=== PATIENT | female | born 1960 | race Caucasian/White ===

== ENCOUNTER 2020-07-11 11:18 | Emergency (ER) | payer OTHER, BC ==
[2020-07-11] MEDS ORDERED: Diphtheria,Pertussis(Acell),Tetanus Vaccine 0.5 ML SDV IM ONE (12:20)
--- NOTE | 2020-07-11 12:32 | EDM.PDOC ---
ED HPI GENERAL MEDICAL PROBLEM - General Stated Complaint: LACERATION Time Seen by Provider: 07/11/20 12:00 Source of Information: Reports: Patient - History of Present Illness INITIAL COMMENTS - FREE TEXT/NARRATIVE: Patient is a 60 y/o female who presents with laceration to her left wrist. She was using a steam box hand at work and accidentally cut herself. Bleeding controlled prior to arrival to the ED. Last tetanus immunization was in 2013. - Related Data Allergies Allergy/AdvReac Type Severity Reaction Status Date / Time codeine Allergy Facial Verified 07/14/18 12:26 Swelling Home Meds: Home Meds Calcium Citrate 200 mg PO DAILY 07/23/13 [History] Ibuprofen/Pseudoephedrine HCl [Advil Cold & Sinus Caplet] 200 mg PO ASDIRECTED 09/26/14 [History] ED ROS GENERAL - Review of Systems Review Of Systems: See Below Constitutional: Reports: No Symptoms HEENT: Reports: No Symptoms Musculoskeletal: Reports: No Symptoms Skin: Reports: Wound ED EXAM, SKIN/RASH Exam: See Below Exam Limited By: No Limitations General Appearance: Alert, No Apparent Distress Head: Atraumatic, Normocephalic Respiratory/Chest: No Respiratory Distress, No Accessory Muscle Use Extremities: Normal Inspection, Normal Range of Motion, Normal Capillary Refill Neurological: Alert, Oriented Skin: Warm, Dry, Wound/Incision, Other (2.0 cm gaping, subcutaneous laceration to left wrist) ED SKIN PROCEDURES - Laceration/Wound Repair Left Ventral Wrist Appearance: Subcutaneous Distal NVT: Neuro & Vascular Intact, No Tendon Injury Anesthetic Type: Local Local Anesthesia - Lidocaine (Xylocaine): 1% Plain Local Anesthetic Volume: 3cc Skin Prep: Chlorhexidine (Hibiciens), Saline Exploration/Debridement/Repair: Wound Explored, No Foreign Material Found Suture Size: 4-0 # of Sutures: 3 Repaired with: Other (ethilon) Drain Placement: No Sterile Dressing Applied: Nurse Tetanus Status Addressed: Yes Complications: No Course - Vital Signs Last Recorded V/S: Last Vital Signs Temp 36.4 C 07/11/20 12:05 Pulse 71 07/11/20 12:05 Resp 18 07/11/20 12:05 BP 149/88 H 07/11/20 12:05 Pulse Ox 99 07/11/20 12:05 - Orders/Labs/Meds Orders: Active Orders 24 hr Category Date Time Status Vaccines to be Administered [RC] PER UNIT ROUTINE Care 07/11/20 12:20 Ordered Meds: Medications Discontinued Medications Generic Name Dose Route Start Last Admin Trade Name Vero PRN Reason Stop Dose Admin Diphtheria/Tetanus/Acell Pertussis 0.5 ml 07/11/20 12:20 Boostrix IM 07/11/20 12:21 .ONCE ONE Departure - Departure Time of Disposition: 12:00 Disposition: Home, Self-Care 01 Clinical Impression: Laceration - Discharge Information *PRESCRIPTION DRUG MONITORING PROGRAM REVIEWED*: Not Applicable *COPY OF PRESCRIPTION DRUG MONITORING REPORT IN PATIENT GOLD: Not Applicable Sepsis Event Note (ED) - Evaluation Sepsis Screening Result: No Definite Risk - Focused Exam Vital Signs: Vital Signs Temp Pulse Resp BP Pulse Ox 07/11/20 12:05 36.4 C 71 18 149/88 H 99 - My Orders Last 24 Hours: My Active Orders 07/11/20 12:20 Vaccines to be Administered [RC] PER UNIT ROUTINE - Assessment/Plan Last 24 Hours: My Active Orders 07/11/20 12:20 Vaccines to be Administered [RC] PER UNIT ROUTINE
== END 2020-07-11 12:45 | disposition home or self-care (01) ==
LOC: LB.ED 11:18
DX: S61.512A Laceration without foreign body of left wrist, initial encounter (principal); Z23 Encounter for immunization; Z88.5 Allergy status to narcotic agent; Z79.899 Other long term (current) drug therapy; W27.8XXA Contact with other nonpowered hand tool, initial encounter; Y99.0 Civilian activity done for income or pay
CPT/HCPCS: 12001; 12002; 90471; 90715; 99282-25; 99284

== ENCOUNTER 2021-01-22 18:47 | Emergency (ER) | payer BC ==
[~2021-01-22 18:47] MED LIST: Sodium Chloride 0.9% 1,000 ML IV ONE
--- NOTE | 2021-01-22 19:05 | EDM.PDOC ---
ED HPI GENERAL MEDICAL PROBLEM - General Chief Complaint: Abdominal Pain Stated Complaint: abd pain Time Seen by Provider: 01/22/21 19:10 Source of Information: Reports: Patient History Limitations: Reports: No Limitations - History of Present Illness INITIAL COMMENTS - FREE TEXT/NARRATIVE: Ms. Suarez is a 60 YOF here for diffuse abdominal pain and nausea that began this am. She states it started in the chest and has moved down into her lower abdomen. She has not taken anything for her symptoms. No history of choroidal melanoma. Abd is soft, she is not guarding, no rebound tenderness. No vomiting. Normal HRR, lungs are CTA, no fever or rash noted. Onset: Today Onset Date: 01/22/21 Onset Time: 10:00 Duration: Hour(s):, Constant Location: Reports: Abdomen Quality: Reports: Ache Improves with: Reports: None Worsens with: Reports: None Associated Symptoms: Reports: No Other Symptoms Abdominal Pain Score (Numeric/FACES): 8 - Related Data Allergies Allergy/AdvReac Type Severity Reaction Status Date / Time codeine Allergy Facial Verified 01/22/21 19:14 Swelling Home Meds: Home Meds Calcium Citrate 200 mg PO DAILY 07/23/13 [History] Ibuprofen/Pseudoephedrine HCl [Advil Cold & Sinus Caplet] 200 mg PO ASDIRECTED 09/26/14 [History] Cyclobenzaprine [Flexeril] 10 mg PO BEDTIME 01/22/21 [History] Escitalopram Oxalate [Lexapro] 20 mg PO DAILY 01/22/21 [History] ED ROS GENERAL - Review of Systems Review Of Systems: See Below GI/Abdominal: Reports: Abdominal Pain, Nausea ED EXAM, GI/ABD - Physical Exam Exam: See Below Exam Limited By: No Limitations General Appearance: Alert, Anxious, Mild Distress Ears: Normal External Exam, Normal Canal Nose: Normal Inspection, Normal Mucosa Throat/Mouth: Normal Inspection, Normal Lips, Normal Teeth, Normal Oropharynx Head: Atraumatic, Normocephalic Neck: Normal Inspection, Supple, Non-Tender Respiratory/Chest: No Respiratory Distress, Lungs Clear, Normal Breath Sounds Cardiovascular: Normal Peripheral Pulses, Regular Rate, Rhythm, No Edema GI/Abdominal Exam: Normal Bowel Sounds, Soft, No Distention (Female) Exam: Deferred Rectal (Female) Exam: Deferred Back Exam: Normal Inspection Extremities: Normal Inspection, Normal Range of Motion, Non-Tender Neurological: Alert, Oriented, CN II-XII Intact, Normal Cognition Psychiatric: Normal Affect, Anxious Skin Exam: Warm, Dry, Intact, Normal Color Lymphatic: No Adenopathy #1 Interpretation EKG Date: 01/22/21 Time: 18:58 Rhythm: NSR Rate (Beats/Min): 88 [place]: Normal P-Wave: Present QRS: Normal ST-T: Normal QT: Normal Comparison: NA - No Prior EKG EKG Interpretation Comments: Normal sinus rhythm Course - Vital Signs Last Recorded V/S: Last Vital Signs Temp 37.1 C 01/22/21 18:47 Pulse 91 01/22/21 19:05 Resp 18 01/22/21 19:05 BP 162/103 H 01/22/21 19:05 Pulse Ox 98 01/22/21 19:05 - Orders/Labs/Meds Orders: Active Orders 24 hr Category Date Time Status EKG Documentation Completion [RC] ASDIRECTED Care 01/22/21 19:00 Active Abdomen Pelvis w Cont [CT] Stat Exams 01/22/21 18:20 Taken CORONAVIRUS COVID-19 KASSY [MOLEC] Stat Lab 01/22/21 20:24 Received CULTURE URINE [RM] Stat Lab 01/22/21 20:21 Received Iopamidol [Isovue-300 (61%)] Med 01/22/21 19:15 Active 100 ml IV . DIRECTED Levofloxacin/Dextrose 5%-Water [Levaquin in D5W 750 MG/ Med 01/22/21 19:46 Active 150 ML] 750 mg Levofloxacin/Dextrose 5%-Water [Levaquin in D5W 750 MG/ 150 ML] 150 ml IV ONETIME Phenazopyridine [Pyridium] Med 01/22/21 20:18 Active 200 mg PO BID PRN Sodium Chloride 0.9% [Normal Saline] 1,000 ml Med 01/22/21 18:23 Active IV .BOLUS Medication Orders Sodium Chloride (Normal Saline) 1,000 mls @ 999 drops/hr IV .BOLUS ONE Stop: 01/23/21 09:23 Last Admin: 01/22/21 19:19 Dose: 999 drops/hr Documented by: KEYLA Levofloxacin/Dextrose 750 mg/ (Levofloxacin/Dextrose) 300 mls @ 100 mls/hr IV ONETIME ONE Stop: 01/22/21 22:45 Last Admin: 01/22/21 19:50 Dose: 100 mls/hr Documented by: KEYLA Iopamidol (Iopamidol 612 Mg/Ml 100 Ml Bottle) 100 ml IV . DIRECTED [place] Last Admin: 01/22/21 19:29 Dose: 100 ml Documented by: IVETTE Phenazopyridine HCl (Phenazopyridine 100 Mg Tab) 200 mg PO BID PRN PRN Reason: Abdominal Pain Last Admin: 01/22/21 20:42 Dose: 200 mg Documented by: KEYLA Labs: Laboratory Tests 01/22/21 01/22/21 01/22/21 Range/Units 19:00 19:00 19:00 WBC 12.9 H D (4.0-11.0) K/uL RBC 4.33 (3.80-5.80) M/uL Hgb 13.5 (11.5-16.5) g/dL Hct 39.4 (37.0-47.0) % MCV 91 (76-96) fL MCH 31.2 (27.0-32.0) pg MCHC 34.3 (31.0-35.0) g/dL RDW 11.7 (11.0-16.0) % Plt Count 200 (150-500) K/uL MPV 8.8 (6.0-10.0) fL Neut % (Auto) 80.6 H (45.0-70.0) % Lymph % (Auto) 10.1 L (20.0-40.0) % [place] % (Auto) 8.1 (3.0-10.0) % Eos % (Auto) 1.0 (1.0-5.0) % Baso % (Auto) 0.2 (0.0-0.5) % Neut # (Auto) 10.42 H (2.00-7.50) K/uL Lymph # (Auto) 1.30 L (1.50-4.00) K/uL [place] # (Auto) 1.05 H (0.20-0.80) K/uL Eos # (Auto) 0.13 (0.04-0.40) K/uL Baso # (Auto) 0.02 (0.02-0.10) K/uL Sodium 138 (136-145) mmol/L Potassium 4.8 (3.5-5.1) mmol/L Chloride 103 (98-107) mmol/L Carbon Dioxide 24.5 (21.0-32.0) mmol/L Anion Gap 15.3 H (5.0-15.0) mmol/L BUN 13 D (8-26) mg/dL Creatinine 0.78 (0.55-1.02) mg/dL Est Cr Clr Drug Dosing TNP Estimated GFR (MDRD) > 60 (>60) MLS/MIN BUN/Creatinine Ratio 16.7 (6-25) Glucose 135 H D (74-100) mg/dL Calcium 8.7 (8.5-10.1) mg/dL Total Bilirubin 0.7 (0.0-1.0) mg/dL AST 14 L (15-37) U/L ALT 23 (12-78) U/L Alkaline Phosphatase 82 (46-116) U/L Troponin I < 0.017 (0.000-0.060) ng/mL Total Protein 7.5 (6.4-8.2) g/dL Albumin 4.1 (3.4-5.0) g/dL Globulin 3.4 (2.2-4.2) g/dL Albumin/Globulin Ratio 1.2 (0.8-2.0) Urine Color Urine Appearance (CLEAR) Urine pH (5.0-8.0) Ur Specific [place] (1.003-1.030) Urine Protein (NEGATIVE) mg/dL Urine Glucose (UA) (NEGATIVE) mg/dL Urine Ketones (NEGATIVE) mg/dL Urine Occult Blood (NEGATIVE) Urine Nitrite (NEGATIVE) Urine Bilirubin (NEGATIVE) Urine Urobilinogen (0.2-1.0) E.U./dL Ur Leukocyte Esterase (NEGATIVE) Urine RBC /HPF Urine WBC /HPF Urine WBC Clumps /HPF Ur Squamous Epith Cells /HPF Urine Bacteria /HPF 01/22/21 Range/Units 19:07 WBC (4.0-11.0) K/uL RBC (3.80-5.80) M/uL Hgb (11.5-16.5) g/dL Hct (37.0-47.0) % MCV (76-96) fL MCH (27.0-32.0) pg MCHC (31.0-35.0) g/dL RDW (11.0-16.0) % Plt Count (150-500) K/uL MPV (6.0-10.0) fL Neut % (Auto) (45.0-70.0) % Lymph % (Auto) (20.0-40.0) % [place] % (Auto) (3.0-10.0) % Eos % (Auto) (1.0-5.0) % Baso % (Auto) (0.0-0.5) % Neut # (Auto) (2.00-7.50) K/uL Lymph # (Auto) (1.50-4.00) K/uL [place] # (Auto) (0.20-0.80) K/uL Eos # (Auto) (0.04-0.40) K/uL Baso # (Auto) (0.02-0.10) K/uL Sodium (136-145) mmol/L Potassium (3.5-5.1) mmol/L Chloride (98-107) mmol/L Carbon Dioxide (21.0-32.0) mmol/L Anion Gap (5.0-15.0) mmol/L BUN (8-26) mg/dL Creatinine (0.55-1.02) mg/dL Est Cr Clr Drug Dosing Estimated GFR (MDRD) (>60) MLS/MIN BUN/Creatinine Ratio (6-25) Glucose (74-100) mg/dL Calcium (8.5-10.1) mg/dL Total Bilirubin (0.0-1.0) mg/dL AST (15-37) U/L ALT (12-78) U/L Alkaline Phosphatase (46-116) U/L Troponin I (0.000-0.060) ng/mL Total Protein (6.4-8.2) g/dL Albumin (3.4-5.0) g/dL Globulin (2.2-4.2) g/dL Albumin/Globulin Ratio (0.8-2.0) Urine Color Yellow Urine Appearance Cloudy (CLEAR) Urine pH 6.0 (5.0-8.0) Ur Specific [place] 1.025 (1.003-1.030) Urine Protein Negative (NEGATIVE) mg/dL Urine Glucose (UA) Negative (NEGATIVE) mg/dL Urine Ketones 40 H (NEGATIVE) mg/dL Urine Occult Blood Trace-lysed H (NEGATIVE) Urine Nitrite Positive H (NEGATIVE) Urine Bilirubin Negative (NEGATIVE) Urine Urobilinogen 0.2 (0.2-1.0) E.U./dL Ur Leukocyte Esterase Small H (NEGATIVE) Urine RBC 0-5 H /HPF Urine WBC 50-75 H /HPF Urine WBC Clumps Few /HPF Ur Squamous Epith Cells Few /HPF Urine Bacteria Many H /HPF Meds: Medications Generic Name Dose Route Start Last Admin Trade Name Vero PRN Reason Stop Dose Admin Sodium Chloride 1,000 mls @ 999 drops/hr 01/22/21 18:23 01/22/21 19:19 Normal Saline IV 01/23/21 09:23 999 drops/hr .BOLUS ONE Administration Levofloxacin/Dextrose 750 mg/ 300 mls @ 100 mls/hr 01/22/21 19:46 01/22/21 19:50 Levofloxacin/Dextrose IV 01/22/21 22:45 100 mls/hr ONETIME ONE Administration Iopamidol 100 ml 01/22/21 19:15 01/22/21 19:29 Iopamidol 612 Mg/Ml 100 Ml Bottle IV 100 ml . DIRECTED [place] Administration Phenazopyridine HCl 200 mg 01/22/21 20:18 01/22/21 20:42 Phenazopyridine 100 Mg Tab PO 200 mg BID PRN Administration Abdominal Pain Discontinued Medications Generic Name Dose Route Start Last Admin Trade Name Vero PRN Reason Stop Dose Admin Fentanyl 12.5 mcg 01/22/21 19:23 01/22/21 19:29 Fentanyl 100 Mcg/2 Ml Sdv IVPUSH 01/22/21 19:24 12.5 mcg ONETIME ONE Administration Hydromorphone HCl 1 mg 01/22/21 20:47 Hydromorphone 2 Mg/Ml Sdv IV 01/22/21 20:48 ONETIME ONE Levofloxacin/Dextrose Confirm 01/22/21 19:37 01/22/21 20:08 Levaquin In D5w 750 Mg/150 Ml Administered 01/22/21 19:38 Not Given Dose 150 mls @ as directed IV .STK-MED ONE Sodium Chloride 50 ml 01/22/21 19:10 01/22/21 19:28 Sodium Chloride 0.9% 50 Ml Sdv FLUSH 01/22/21 19:11 50 ml ONETIME ONE Administration Departure - Departure Time of Disposition: 21:00 Disposition: DC/Tfer to Acute Hospital 02 Condition: Good Clinical Impression: UTI (urinary tract infection) Qualifiers: Urinary tract infection type: acute cystitis Hematuria presence: with hematuria Qualified Code(s): N30.01 - Acute cystitis with hematuria Acute appendicitis Qualifiers: Acute appendicitis type: unspecified acute appendicitis type Qualified Code(s): K35.80 - Unspecified acute appendicitis Appendicitis Qualifiers: Appendicitis type: acute appendicitis Acute appendicitis type: unspecified acute appendicitis type Qualified Code(s): K35.80 - Unspecified acute appendicitis - Discharge Information *PRESCRIPTION DRUG MONITORING PROGRAM REVIEWED*: Not Applicable *COPY OF PRESCRIPTION DRUG MONITORING REPORT IN PATIENT GOLD: Not Applicable Instructions: Urinary Tract Infection, Adult, [id number] Referrals: PCP,None [Primary Care Provider] - Forms: ED Department Discharge Care Plan Goals: Transfer to [facility] for appendectomy with General Surgery, discussed care plan with Dr. Duenas and Dr. Griffin. Transfer from [facility] with ACLS crew. Sepsis Event Note (ED) - Focused Exam Vital Signs: Vital Signs Temp Pulse Resp BP Pulse Ox 01/22/21 19:05 91 18 162/103 H 98 01/22/21 18:47 37.1 C 90 18 165/103 H 99 - My Orders Last 24 Hours: My Active Orders 01/22/21 18:20 Abdomen Pelvis w Cont [CT] Stat 01/22/21 18:23 Sodium Chloride 0.9% [Normal Saline] 1,000 ml IV .BOLUS 01/22/21 19:00 EKG Documentation Completion [RC] ASDIRECTED 01/22/21 19:15 Iopamidol [Isovue-300 (61%)] 100 ml IV . DIRECTED 01/22/21 19:46 Levofloxacin/Dextrose 5%-Water [Levaquin in D5W 750 MG/150 ML] 750 mg Levofloxacin/Dextrose 5%-Water [Levaquin in D5W 750 MG/150 ML] 150 ml IV ONETIME 01/22/21 20:18 Phenazopyridine [Pyridium] 200 mg PO BID PRN 01/22/21 20:21 CULTURE URINE [RM] Stat 01/22/21 20:24 CORONAVIRUS COVID-19 KASSY [MOLEC] Stat - Assessment/Plan Last 24 Hours: My Active Orders 01/22/21 18:20 Abdomen Pelvis w Cont [CT] Stat 01/22/21 18:23 Sodium Chloride 0.9% [Normal Saline] 1,000 ml IV .BOLUS 01/22/21 19:00 EKG Documentation Completion [RC] ASDIRECTED 01/22/21 19:15 Iopamidol [Isovue-300 (61%)] 100 ml IV . DIRECTED 01/22/21 19:46 Levofloxacin/Dextrose 5%-Water [Levaquin in D5W 750 MG/150 ML] 750 mg Levofloxacin/Dextrose 5%-Water [Levaquin in D5W 750 MG/150 ML] 150 ml IV ONETIME 01/22/21 20:18 Phenazopyridine [Pyridium] 200 mg PO BID PRN 01/22/21 20:21 CULTURE URINE [RM] Stat 01/22/21 20:24 CORONAVIRUS COVID-19 KASSY [MOLEC] Stat Assessment:: UTI, Acute Appendicitis. Plan: Transfer to [facility] for appendectomy with General Surgery, discussed care plan with Dr. Duenas and Dr. Griffin.
[2021-01-22] MEDS ORDERED: Sodium Chloride 0.9% 50 ML SDV FLUSH ONE (19:10)
[2021-01-22] MEDS ORDERED: Iopamidol 612 MG/ML 100 ML Bottle IV SCH (19:15)
[2021-01-22] MEDS ORDERED: fentaNYL 100 MCG/2 ML SDV IVPUSH ONE (19:23)
[2021-01-22] MEDS ORDERED: Levofloxacin/Dextrose 5%-Water 150 ML IV ONE (19:37)
[2021-01-22] MEDS ORDERED: Levofloxacin/Dextrose 5%-Water 750 MG in Levofloxacin/Dextrose 5%-Water 150 ML IV ONE (19:46)
[2021-01-22] MEDS ORDERED: Phenazopyridine 100 MG Tab PO PRN (20:18)
[2021-01-22] MEDS ORDERED: HYDROmorphone 2 MG/ML SDV IV ONE (20:47)
[2021-01-22] MEDS ORDERED: HYDROmorphone 2 MG/ML SDV ONE (21:04)
[2021-01-22] MEDS ORDERED: Ondansetron 4 MG/2 ML SDV IVPUSH ONE (21:13)
[2021-01-22] MEDS ORDERED: Ondansetron 4 MG/2 ML SDV ONE (21:23)
--- NOTE | 2021-01-23 08:26 | CT ---
Date of Service: 01/22/21 Clinical Data: pelvic, abdominal pain. ENHANCED ABDOMEN AND PELVIC CT: Multislice acquisition through the abdomen and pelvis with IV, but without oral contrast was performed. Comparison is made to a prior unenhanced and enhanced abdomen and pelvic CT dated 09/21/13. There are atelectatic changes in dependent portion of both lower lungs. The lung bases are otherwise clear. There is mild diffuse fatty infiltration of the liver. No focal hepatic lesions. The gallbladder appears normal. No biliary duct dilatation. The spleen appears normal. The pancreas appears normal. The right and left adrenals appear normal. The right and left kidneys appear normal and enhance symmetrically. No hydronephrosis or hydroureter The bladder is partially fluid filled. There is a pair of diffuse bladder wall thickening. This is probably related to nondistention Cystitis should be considered. There is gastric wall thickening in the antrum of the stomach. This is probably related to nondistention. Gastritis or an infiltrating process should at least be considered. The appendix is abnormal. It is dilated and measures 13 mm in diameter. There is mild periappendiceal fat stranding. These findings are consistent with appendicitis. No evidence of periappendiceal abscess. There is a large amount of stool noted within the cecum and ascending colon. There is a moderate amount of gas and stool present throughout the transverse and descending colon. There is diverticulosis of the sigmoid colon. No evidence of diverticulitis. No free air. No free fluid. No dilated loops of bowel. No adenopathy. No aortic aneurysm or dissection. No other significant findings. IMPRESSION: Abnormal appendix consistent with appendicitis. The patient's physician was notified of the findings by telephone and by [facility] preliminary radiology report. Multiple other findings as discussed above. [id number]
== END 2021-01-22 21:30 ==
LOC: LB.ED 18:47
DX: K35.80 Unspecified acute appendicitis (principal); N30.01 Acute cystitis with hematuria; Z88.5 Allergy status to narcotic agent; Z79.899 Other long term (current) drug therapy
CPT/HCPCS: 36415; 74177; 80053; 81001; 84484; 85025; 87086; 87088; 87186; 93005; 96365; 96375; 99285-25; A0425; A0429; A9270-GY; J1170; J1956; J2405; J3010; J7030; Q9967; U0002

== ENCOUNTER 2024-03-16 14:49 | Emergency (ER) | payer BC, OTHER ==
[2024-03-16] MEDS: traMADol 50 MG Tab PO ONE (15:48)
== END 2024-03-16 16:30 | disposition home or self-care (01) ==
LOC: LB.ED 14:49
DX: S43.402A Unspecified sprain of left shoulder joint, initial encounter (principal); Z79.899 Other long term (current) drug therapy; Z88.5 Allergy status to narcotic agent; W01.198A Fall on same level from slipping, tripping and stumbling with subsequent striking against other object, initial encounter
CPT/HCPCS: 73030; 99283; A9270